=== PATIENT | male | born 1955 | race Caucasian/White ===

== ENCOUNTER → 2020-04-20 | Outpatient (CLI) | payer MEDICARE ==
[~2020-04-20] MED LIST: ACETAMINOPHEN-1 EAC1 PO; ANXIETY MED; CELEXA20 MG PO; CENTRUM TABLET1 EACH; CIPRO500 MG PO; COZAAR 50 MG TA50 M2 PO; FLOMAX PO; FLOMAX0.4 MG PO; IBUPROFEN 600600 M1 PO; LEVSIN0.125 MG PO; LORTAB 5 MG/5001 TA1; NORCO 5-325 TA1 EACH PO; ONDANSETRON HCL4 M2 PO; PERCOCET 5-3251 EACH PO; PERCOCET PO; PHENAZOPYRIDIN100 M1 PO; PRINIVIL20 MG PO; TAMSULOSIN HCL0.4 MG; ZOFRAN4 MG PO
== END ==
LOC: M.LAB 08:30
PROVIDERS: ATTEND Internal Medicine Gastroenterology
DX: Z01.812 Encounter for preprocedural laboratory examination (principal); Z11.59 Encounter for screening for other viral diseases; R10.84 Generalized abdominal pain

== ENCOUNTER → 2020-11-19 | Outpatient (CLI) | payer MEDICARE | LOC: M.LAB 15:17 | PROVIDERS: ATTEND Surgery | DX: Z01.812 Encounter for preprocedural laboratory examination (principal); K40.91 Unilateral inguinal hernia, without obstruction or gangrene, recurrent; Z20.822 Contact with and (suspected) exposure to COVID-19 ==